=== PATIENT | male | born 1960 | race African-American/Black ===

== ENCOUNTER 2019-12-07 | Outpatient (REF) | payer MEDICARE, SELFPAY ==
[2019-12-07 07:55] LABS: Hemoglobin 9.9 g/dl (14.0-18.0); Mean Corpuscular HGB Conc 30.9 g/dl (31.0-36.0); Mean Corpuscular Volume 90.4 fL (80-98); Mean Platelet Volume 9.3 fL (9.4-12.4); NRBC Pct Auto 0.2 /100WBC (0.0-0.2); Platelet Count 502 X10*3/uL (160-400); Red Blood Count 3.54 X10*6/uL (4.60-5.80); Red Cell Distribution Width 17.7 % (11.0-16.0); White Blood Count 12.6 X10*3/uL (4.8-10.8)
[2019-12-07 08:37] LABS: Anion Gap 18 (12-20); Blood Urea Nitrogen 61 mg/dL (9-16); Calcium 9.1 mg/dL (8.4-10.2); Carbon Dioxide 25 mmol/L (22-29); Chloride 101 mmol/L (96-108); Estimated Glomerular Filt Rate 10; Glucose Random 99 mg/dL (60-115); Potassium 5.2 mmol/l (3.3-5.1); Sodium 139 mmol/L (135-145)
== END 2019-12-07 00:01 | disposition home or self-care (01) ==
LOC: HO.MMNH3L
PROVIDERS: Visit Provider Family Medicine
DX: M87.052 Idiopathic aseptic necrosis of left femur (principal); N18.5 Chronic kidney disease, stage 5; D63.1 Anemia in chronic kidney disease
CPT/HCPCS: 36415; 80048; 85027